=== PATIENT | female | born 1955 | race Caucasian/White ===

== ENCOUNTER 2016-05-23 20:20 | Inpatient (IN) | payer MEDICARE, OTHER, MEDICAID ==
[~2016-05-23 20:20] MED LIST: ABILIFY10 MG PO; ABILIFY15 MG PO; ABILIFY20 MG; ABILIFY30 MG PO; ACTOS15 MG PO; ACTOS30 MG; ACTOS30 MG PO; ACTOS45 MG; ADVAIR 1001 DISK W/D; ADVAIR 2501 DISK W/D; ADVAIR 2501 DISK W/D IH; ADVAIR 25028 BLISTER INH; ADVAIR HFA 115-12 G1 IH; ALLEGRA60 MG; AMARYL4 MG PO; ANTIBIOTIC FOR UTI; ANTIVERT12.5 MG PO; ANTIVERT25 MG; ANTIVERT25 MG PO; ARIXTRA2.5 MG/0.5 SQ; ARTHROTEC 501 TAB.EC; ARTHROTEC PO; ARTIFICIAL TEA3.5 G3 OP; ARTIFICIAL TEAR15 M8 OP; ARTIFICIAL TEAR1510 OP; ASTELIN137 MCG; ASTELIN137 MCG NS; ATIVAN0.5 MG PO; AYR SALINE NA14.1 GM TP; B-121000 MCG PO; BACLOFEN10 MG; BACTRIM DS TAB1 EAC2 PO; BACTRIM DS TABL1 TAB PO; BEE WITH C1 CAP PO; BENTYL10 MG PO; BUDEPRION SR150 MG PO; BUMEX1 MG PO; BUPROPION XL150 MG PO; BYSTOLIC2.5 MG; BYSTOLIC2.5 MG PO; CALCIUM + D SO1 EACH PO; CALCIUM 600 +1 EA17 PO; CALCIUM 600 +1 EAC2 PO; CALCIUM 600 MG1 EACH PO; CALCIUM 600 W/V1 TAB; CALCIUM W/VIT D1 TA PO; CALCIUM600 MG; CALCIUM600 MG PO; CERTAVITE-ANTI1 EACH PO; CIPRO250 MG PO; CLARITIN-D1 TAB.SR PO; CLARITIN10 MG PO; CLARITIN5 MG PO; CLEOCIN HCL300 M1 PO; COL-RITE100 M1 PO; COLACE100 MG PO; COUMADIN2 MG PO; COUMADIN2.5 M1 PO; COUMADIN2.5 MG PO; COUMADIN3 M1 PO; COUMADIN3 MG; COUMADIN3 MG PO; COUMADIN4 M1 PO; COUMADIN4 MG; COUMADIN4 MG PO; COUMADIN5 M1 PO; COUMADIN5 MG; COUMADIN5 MG PO; COUMADIN6 MG; CRANBERRY450 M5 PO; CREON DR 12,001 EAC1 PO; CREON DR 12,001 EACH PO; CULTURELLE1 EAC1; CULTURELLE1 EAC1 PO; CYCLOBENZAPRINE5 MG PO; CYMBALTA30 MG; CYMBALTA30 MG PO; CYTOMEL25 MC1 PO; CYTOMEL25 MCG; CYTOMEL25 MCG PO; DARVOCET-N 1001 TAB PO; DEPAKOTE D250 MG/TA1 PO; DEPAKOTE D500 MG/TA1 PO; DEPAKOTE ER250 M1 PO; DEPAKOTE ER500 M1 PO; DEPAKOTE ER500 MG PO; DEPAKOTE125 MG PO; DEPLIN15 MG PO; DICLOFENAC SODI50 MG PO; DIFLUCAN100 M1 PO; DIFLUCAN100 MG PO; DIFLUCAN50 MG PO; DIOVAN40 MG; DIOVAN80 MG; DIVALPROEX SOD250 M3 PO; DOCUSATE CALCI100 MG; DOCUSATE SODIU100 MG PO; DOXEPIN HCL10 MG PO; DULCOLAX10 MG/SUPP RC; DULOXETINE HCL30 M1 PO; DUONEB 2.5-0.5 M3 ML IH; DURAGESIC1 PATCH . TOP; DURAGESIC1 PATCH .7 TOP; ENDOCET1 EA PO; ENZYCAP; FENTANYL1 EAC4 TP; FEOSOL1 TAB; FERROUS SU325 ( 65 ); FERROUS SULFATE1 TAB PO; FLEXERIL10 MG PO; FLOMAX0.4 MG; FLUDROCORTISON0.1 M1 PO; FLUDROCORTISONE PO; FOSAMAX70 MG; FOSAMAX70 MG PO; FUROSEMIDE20 MG PO; FUROSEMIDE40 MG PO; GAS RELIEF40 MG/0.3 PO; GLIPIZIDE ER10 M1 PO; GLUCOPHAGE1000 MG PO; GLUCOPHAGE500 MG PO; HUMULIN R100 U/ML SQ; HYDROCODONE/APA1 CAP; IBUPROFEN200 M2 PO; IMDUR60 MG PO; IMITREX100 M1 PO; IMITREX100 MG PO; IMODIUM2 MG PO; ISOSORBIDE MONO30 M1 PO; K-DUR20 ME1 PO; K-DUR20 MEQ PO; KEFLEX500 MG PO; KEPPRA XR500 MG PO; KEPPRA1000 MG PO; KEPPRA500 M1 PO; KEPPRA500 MG; KEPPRA500 MG PO; KETOCONAZOLE15 GM TP; KLOR-CON M20 MEQ/TAB PO; KLOR-CON M2020 MEQ PO; KLOR-CON25 MEQ PO; LAMICTAL200 MG; LASIX20 MG PO; LASIX40 MG PO; LEVEMIR100 U/M; LEVEMIR100 U/M SQ; LEVEMIR100 U/ML; LEVEMIR100 U/ML SQ; LEVEMIR100 UNITS/ SC; LEVEMIR100 UNITS/ SQ; LIDODERM30 EA TP; LIPITOR10 MG; LIPITOR10 MG PO; LIPITOR20 MG PO; LISINOPRIL10 M1 PO; LOPRESSOR25 MG/TA1 PO; LOPRESSOR25 MG/TA2 PO; LOVENOX40 MG/0.4 SQ; LUNESTA3 MG; LYRICA200 M1 PO; LYRICA200 MG; LYRICA200 MG PO; LYRICA75 MG; MACROBID 100 M100 MG PO; MACROBID100 MG/CA1 PO; MAGNESIUM200 MG PO; MAGOX400 MG PO; MELATONIN PO; METFORMIN HCL500; METOPROLOL TART25 MG PO; MGO400 MG PO; MIRALAX17 GM PO; MONTELUKAST SOD10 M2 PO; MUCINEX600 MG PO; MULTI-VITAMIN1 EAC1 PO; MULTIPLE VITAMI1 TAB PO; MULTIVITAMIN1 TAB; MULTIVITAMIN1 TAB PO; MYTAB GAS80 MG; MYTAB GAS80 MG PO; NASAREL29 MCG; NEXIUM40 MG PO; NITROGLYCERIN0.4 MG SL; NITROQUICK0.4 MG SL; NITROSTAT0.4 MG SL; NORCO 5/325 TAB1 TAB; NORCO 5/325 TAB1 TAB PO; NORCO 5/3251 TA1 PO; NORCO 5/3251 TAB PO; NORTRIPTYLINE H50 MG; NORVASC2.5 MG; NORVASC2.5 MG PO; NORVASC5 MG; NOVOLOG100 U/M SQ; NOVOLOG100 UNIT/1 SQ; NOVOLOG100 UNIT/2 SC; NOVOLOG100 UNITS/ SC; NYSTATIN ORAL S60 M1 PO; NYSTATIN1 EA10 TOP; OMEPRAZOLE20 M1; OMEPRAZOLE40 M2 PO; OXYCODONE HCL10 M2 PO; OXYCODONE HCL5 MG PO; OXYCODONE/APAP PO; PAMELOR10 MG PO; PERCOCET 5/3251 TAB PO; PERCOCET 5MG/AP1 TA1 PO; POTASSIUM CHLO20 MEQ PO; PREDNISONE10 MG PO; PRILOSEC OTC20 MG; PRILOSEC OTC20 MG PO; PRILOSEC20 MG PO; PRILOSEC40 M1 PO; PRILOSEC40 MG; PRILOSEC40 MG PO; PROTONIX40 MG PO; QUETIAPINE FUM100 MG PO; REFRESH OPTIVE10 M1 OP; RITALIN5 M1 PO; ROBITUSSIN COU118 M8 PO; ROZEREM8 MG; ROZEREM8 MG PO; SENEXON8.6 M1 PO; SENNA PLUS TAB1 EACH PO; SENOKOT-S TABL1 EACH PO; SENOKOT8.6 MG PO; SEROQUEL XR150 MG PO; SEROQUEL100 M1 PO; SEROQUEL100 MG PO; SEROQUEL400 MG; SEROQUEL400 MG PO; SEROQUEL50 MG PO; SINEQUAN10 MG PO; SINGULAIR10 MG; SINGULAIR10 MG PO; SUMATRIPTAN SU100 MG PO; TOPAMAX25 M PO; TOPAMAX25 MG; TOPAMAX25 MG PO; TOPROL XL25 MG; TRIXAICIN TP; TYLENOL325 M1 PO; TYLENOL325 M2 PO; TYLENOL325 MG PO; ULTRAM ER100 MG PO; ULTRAM50 MG PO; VENTOLIN HFA18 G1 IH; VENTOLIN HFA18 GM IH; VITAMIN; VITAMIN B121000 MCG PO; VOLTAREN100 G1 TOP; VOLTAREN100 G1 TP; VOLTAREN50 MG PO; WARFARIN; WELCHOL625 MG; WELLBUTRIN SR150 MG PO; WELLBUTRIN XL150 MG; WELLBUTRIN XL150 MG PO; WELLBUTRIN100 MG; WELLBUTRIN75 MG PO; ZESTRIL10 M3 PO; ZINC PO; ZITHROMAX250MG Z-PAK PO; ZYRTEC10 M PO; ZYRTEC10 MG PO; [UNRECOGNIZED DRUG - OTHER]; [UNRECOGNIZED DRUG - OTHER] PO; [UNRECOGNIZED DRUG - OTHER] PO
[2016-05-23] MEDS ORDERED: MIRALAX17 G2 PO (20:48)
[2016-05-23 20:52] LABS: BASO % 0.1 % (0-2); EOS % 0.2 % (0-7); EOSINOPHIL ABSOLUTE COUNT 0.1 tho/cmm (0.0-0.7); HCT-HEMATOCRIT 40.3 % (34.0-49.0); HGB-HEMOGLOBIN 13.8 gm/dl (12.0-15.5); IMMATURE GRANULOCYTES ABSOLUTE 0.07 tho/cmm (0-0.03); IMMATURE GRANULOCYTES PERCENT 0.3 % (0-0.3); LYMPH % 11.9 % (20-45); LYMPH ABSOLUTE COUNT 2.9 tho/cmm (0.8-4.5); MCH (MEAN CORPUSCULAR HGB) 27.9 pg (28.0-32.0); MCHC MEAN CORPUSCULAR HGB CONC 34.2 % (32.0-36.0); MCV (MEAN CELL VOLUME) 81.4 fl (82.0-96.0); MEAN PLATELET VOLUME 9.8 cmc (9.4-12.4); MONO % 7.8 % (0-12); MONOCYTE ABSOLUTE COUNT 1.9 tho/cmm (0.0-1.2); NEUTROPHIL ABSOLUTE COUNT 19.3 tho/cmm (1.6-8.0); NEUTROPHIL-AUTOMATED 19.3 tho/cmm (1.6-8.0); NEUTROPHILS % 79.7 % (40-80); PLATELET COUNT 372 tho/cmm (150-450); RED BLOOD COUNT 4.95 mil/cmm (4.00-5.20); RED CELL DISTRIBUTION WIDTH 13.9 % (12.4-16.4); WHITE BLOOD COUNT 24.2 tho/cmm (4.0-10.0)
[2016-05-23] MEDS ORDERED: RITALIN20 M1 (20:53)
[2016-05-23] MEDS ORDERED: NEURONTIN300 M1 PO (20:54)
[2016-05-23 20:56] LABS: INR 2.3 INR (0.9-1.1); PROTHROMBIN TIME 27.2 SECONDS (9.0-13.6)
[2016-05-23 21:10] LABS: ALB/GLOB RATIO 0.6 (0.8-2.0); ALKALINE PHOSPHATASE 144 U/L (33-138); ALT/SGPT 9 U/L (12-78); ANION GAP 14 mmol/L (0-20); AST/SGOT 24 U/L (10-40); BILIRUBIN,TOTAL 0.6 mg/dl (0-1.5); BLOOD UREA NITROGEN 11 mg/dl (6-24); CALCIUM 8.4 mg/dl (8.5-10.5); CARBON DIOXIDE-VENOUS 27 mmol/L (22-32); CHLORIDE 95 mmol/l (96-110); CREATININE 0.57 mg/dl (0.50-1.10); GLUCOSE 244 mg/dL (70-110); POTASSIUM 3.4 mmol/L (3.7-5.1); SODIUM 133 mmol/L (135-145); eGFR VALUE FOR BLACK >90 mL/Min
--- NOTE | 2016-05-24 19:53 | NUR ---
Pt at 1010 with brother & brothers in room. This family stayed for about a half an hour then stated they were leaving. RN asked family if they knew whether pt was to have autopsy & what home would be used. Brother stated that this was the responsibility of the POA Galilea and she was traveling and would call later with that information. MICHAEL was notified immediately. MICHAEL requested that pt not be moved until they gave authorization. Informed NORS of status of family members. MICHAEL called RN aprox every 1-2 hours for updates. Galilea called at 1145 to say that there would be no autopsy but that she was unfamiliar with [place] and did want to make the decision of what home to use. Galilea would like to defer that decision to patients' daughter Raissa. Galilea noted that Raissa was in flight and would not be able to be reached until landing around 1700. Galilea noted that if she was in contact with Raissa at any point prior to that that she or Raissa would call with the information. No one called. RN called and reached Raissa at 1730. Raissa noted that she had in fact been in contact with Galilea and didn't know why hospital wasn't notified. Selection of [facility] was made by Raissa. MICHAEL was then notified. MICHAEL stated that they would call [facility] to see if they had ability to receive. MICHAEL was asked on more than one occassion by RN if there was anything that we should do to preserve the body. Negative. Just to wait for further instructions.
== END 2016-05-24 10:10 | disposition expired | DRG 65 ==
LOC: EDMED 20:20 → EMR2 23:59 → 5WF 05-24 00:30
PROVIDERS: Emergency Medicine; ADMIT Family Medicine
DX: I62.00 Nontraumatic subdural hemorrhage, unspecified (principal); E87.1 Hypo-osmolality and hyponatremia; E11.65 Type 2 diabetes mellitus with hyperglycemia; Z79.01 Long term (current) use of anticoagulants; I69.351 Hemiplegia and hemiparesis following cerebral infarction affecting right dominant side; Z51.5 Encounter for palliative care; I10 Essential (primary) hypertension; E78.5 Hyperlipidemia, unspecified; G89.29 Other chronic pain; E03.9 Hypothyroidism, unspecified; F32.9 Major depressive disorder, single episode, unspecified; J45.909 Unspecified asthma, uncomplicated; Z85.3 Personal history of malignant neoplasm of breast; F20.9 Schizophrenia, unspecified; Z79.891 Long term (current) use of opiate analgesic; I69.320 Aphasia following cerebral infarction; Z86.718 Personal history of other venous thrombosis and embolism; Z86.711 Personal history of pulmonary embolism; G40.909 Epilepsy, unspecified, not intractable, without status epilepticus; Z88.8 Allergy status to other drugs, medicaments and biological substances; Z88.0 Allergy status to penicillin; E87.6 Hypokalemia; Z66 Do not resuscitate; D72.829 Elevated white blood cell count, unspecified
CPT/HCPCS: J3430